=== PATIENT | female | born 1960 | race Caucasian/White ===

== ENCOUNTER 2018-02-26 12:22 | Emergency (ER) | payer BC ==
[~2018-02-26] VITALS: Ht 167.6 cm; Wt 127.0 kg
[~2018-02-26 12:22] MED LIST: ASPIR 8181 MG PO; BUTALB-ACETAMI1 EACH PO; CRANBERRY PO; FIBER PO; FLAXSEED PO; HYDROCHLOROTH12.5 MG PO; LISINOPRIL-HCT1 EAC2 PO; LISINOPRIL10 MG PO; MULTI-VITAMIN1 EACH PO; NOVOLIN N100 UNIT/1 SC; OMEPRAZOLE20 MG PO; POTASSIUM PO; VITAMIN B-12 PO
[2018-02-26] MEDS ORDERED: SODIUM CHLORIDE 0.9% 1000ML 1,000 ML IV STA (12:40)
[2018-02-26] MEDS ORDERED: MORPHINE SULFATE INJ 4 MG/ML INJ IV STA (12:40)
[2018-02-26] MEDS ORDERED: ONDANSETRON HCL INJ 2 MG/ML VIAL IV STA (12:40)
[2018-02-26] MEDS ORDERED: POTASSIUM CHLO10 ME1 PO (12:45)
[2018-02-26] MEDS ORDERED: ATORVASTATIN CA20 MG PO (12:47)
[2018-02-26] MEDS ORDERED: DIATRIZOATE MEGL/DIATRIZOA SOD 30 ML BTL PO ONE (12:50)
[2018-02-26] MEDS ORDERED: LYRICA75 MG PO (13:27)
[2018-02-26] MEDS ORDERED: TRULICITY (13:27)
[2018-02-26] MEDS ORDERED: XYZAL5 MG (13:27)
[2018-02-26] MEDS ORDERED: NABUMETONE500 MG (13:27)
[2018-02-26 13:41] LABS: BASOPHILS # (AUTO) 0.1 (0.0-0.1); BASOPHILS % 0.6 % (0.0-1.0); EOSINOPHILS # (AUTO) 0.2 (0.0-0.4); EOSINOPHILS % 1.7 % (0.0-6.0); HEMATOCRIT 43.2 % (34.2-44.1); HEMOGLOBIN 14.4 g/dL (12.0-16.0); LYMPHOCYTES # (AUTO) 2.9 (1.0-3.2); LYMPHOCYTES % 26.7 % (18.0-39.1); MEAN CORPUSCULAR HEMOGLOBIN 28.9 pg (28-32); MEAN CORPUSCULAR HGB CONC 33.3 g/dL (31-35); MEAN CORPUSCULAR VOLUME 86.6 fL (81-99); MONOCYTES # (AUTO) 0.6 (0.2-0.8); MONOCYTES % 5.3 % (4.4-11.3); NEUTROPHILS # (AUTO) 7.1 (2.1-6.9); NEUTROPHILS % 65.4 % (38.7-80.0); PLATELET COUNT 242 x10e3/uL (140-360); RED BLOOD COUNT 4.99 x10e6/uL (3.6-5.1); RED CELL DISTRIBUTION WIDTH 13.8 % (11.7-14.4)
[2018-02-26 14:01] LABS: CLARITY,URINE CLOUDY (CLEAR); COLOR,URINE YELLOW (YELLOW); KETONES,URINE NEGATIVE (NEGATIVE); LEUKOCYTE ESTERASE ,URINE NEGATIVE (NEGATIVE); NITRITE,URINE NEGATIVE (NEGATIVE); PROTEIN,URINE DIPSTICK NEGATIVE (NEGATIVE); URINE UROBILINOGEN 0.2 mg/dL (0.2 - 1)
[2018-02-26 14:02] LABS: BILIRUBIN,URINE NEGATIVE (NEGATIVE)
[2018-02-26 14:04] LABS: ALANINE AMINOTRANSFERASE 18 IU/L (0-55); ALBUMIN 3.4 g/dL (3.5-5.0); ALBUMIN/GLOBULIN RATIO 0.8 (0.8-2.0); ALKALINE PHOSPHATASE 117 IU/L (40-150); AMYLASE 49 U/L (25-125); ANION GAP 14.6 mmol/L (8-16); BLOOD UREA NITROGEN 21 mg/dL (7-26); BUN/CREATININE RATIO 20 (6-25); CALCIUM 9.5 mg/dL (8.4-10.2); CARBON DIOXIDE 27 mmol/L (22-29); CHLORIDE 106 mmol/L (98-107); CREATININE, SERUM 1.04 mg/dL (0.57-1.11); EST GLOMERULAR FILTRATION RATE 55 ML/MIN (60-); GLUCOSE 93 mg/dL (74-118); LIPASE 35 U/L (8-78); MAGNESIUM 1.6 MG/DL (1.3-2.1); POTASSIUM 3.6 mmol/L (3.5-5.1); SODIUM 144 mmol/L (136-145)
[2018-02-26 14:11] LABS: BACTERIA,URINE MANY /HPF; EPITHELIAL CELLS,URINE MODERATE /LPF; RBC,URINE 0-5 /HPF (0-5)
[2018-02-26] MEDS ORDERED: IOPAMIDOL 370 MG/ML 200 ML INFUS..BTL INJ ONE (14:32)
[2018-02-26] MEDS ORDERED: SODIUM CHLORIDE 0.9% 50ML 50 ML ONE (14:33)
--- NOTE | 2018-02-26 15:20 | Diagnostic Imaging Report ---
EXAM: CT Abdomen and Pelvis WITH contrast INDICATION: \S\LLQ pain, concern for diverticulitis/colitis \[id number] \S\[id number] COMPARISON: None. TECHNIQUE: Abdomen and pelvis were scanned utilizing a multidetector helical scanner from the lung base to the pubic symphysis after administration of IV contrast. Coronal and sagittal reformations were obtained. Routine protocol was performed. Scan was performed when during portal venous phase. IV CONTRAST: 100 mL of Isovue-370 ORAL CONTRAST: Gastroview COMPLICATIONS: None RADIATION DOSE: Total DLP: 906.89 mGy*cm Estimated effective dose: (DLP x 0.015 x size factor) mSv CTDIvol has been reviewed. It is below the limits set by the Radiation Protocol Committee (RPC). FINDINGS: LINES and TUBES: None. LOWER THORAX: Unremarkable. Mild dependent atelectasis. HEPATOBILIARY: No hepatic mass. Subtle subcentimeter right hepatic lobe hypodensity (series 2, image 20) is too small to characterize. No biliary ductal dilation. GALLBLADDER: Surgically absent. SPLEEN: Mild splenomegaly, measuring 12.8 cm. PANCREAS: No focal masses or ductal dilatation. ADRENALS: No adrenal nodules KIDNEYS/URETERS: Markedly atrophic left kidney. Right kidney is unremarkable. No right hydronephrosis or calculus. GI TRACT: No abnormal distention, wall thickening, or evidence of bowel obstruction. Appendix is not clearly identified. There is however no fat stranding or adenopathy in the right lower quadrant to suggest appendicitis. PELVIC ORGANS/BLADDER: Unremarkable. LYMPH NODES: No lymphadenopathy. VESSELS: Unremarkable. PERITONEUM / RETROPERITONEUM: No free air or fluid. BONES: Unremarkable. L5-S1 degenerative changes. SOFT TISSUES: Unremarkable. IMPRESSION: 1. No acute inflammatory process in the abdomen/pelvis. 2. Markedly atrophic nonfunctional left kidney. Signed by: Dr. Nicola Kelley MD on 02/26/2018 3:17 PM
[2018-02-26] MEDS ORDERED: BACTRIM DS TAB1 EACH PO (15:26)
== END 2018-02-26 17:44 | disposition home or self-care (01) ==
LOC: ER 12:22
DX: R10.32 Left lower quadrant pain (principal); R11.0 Nausea
CPT/HCPCS: 36415; 74177; 80053; 81001; 82150; 83690; 83735; 84702; 85025; 87086; 99284; J2270; J2405; J7030; Q9967

== ENCOUNTER 2022-01-06 09:39 | Inpatient (IN) | payer BC, OTHER ==
[~2022-01-06] VITALS: Ht 167.6 cm; Wt 109.3 kg
[~2022-01-06 09:39] MED LIST changes: +ATORVASTATIN CA20 MG PO; +BACTRIM DS TAB1 EACH PO; +LYRICA75 MG PO; +NABUMETONE500 MG; +POTASSIUM CHLO10 ME1 PO; +TRULICITY; +XYZAL5 MG
[2022-01-06] MEDS ORDERED: ONDANSETRON HCL INJ 2MG/ML 2ML 2 MG/ML VIAL IV STA (10:03)
[2022-01-06 10:08] LABS: BASOPHILS # (AUTO) 0.1 (0.0-0.1); BASOPHILS % 0.6 % (0.0-1.0); EOSINOPHILS # (AUTO) 0.3 (0.0-0.4); EOSINOPHILS % 3.2 % (0.0-6.0); HEMATOCRIT 42.2 % (34.2-44.1); HEMOGLOBIN 14.4 g/dL (12.0-16.0); LYMPHOCYTES # (AUTO) 3.4 (1.0-3.2); LYMPHOCYTES % 33.7 % (18.0-39.1); MEAN CORPUSCULAR HEMOGLOBIN 30.8 pg (28-32); MEAN CORPUSCULAR HGB CONC 34.1 g/dL (31-35); MEAN CORPUSCULAR VOLUME 90.4 fL (81-99); MONOCYTES # (AUTO) 0.6 (0.2-0.8); MONOCYTES % 5.9 % (4.4-11.3); NEUTROPHILS # (AUTO) 5.7 (2.1-6.9); NEUTROPHILS % 56.4 % (38.7-80.0); PLATELET COUNT 204 x10e3/uL (140-360); RED BLOOD COUNT 4.67 x10e6/uL (3.6-5.1); RED CELL DISTRIBUTION WIDTH 13.5 % (11.7-14.4)
[2022-01-06 10:34] LABS: INR 0.9
[2022-01-06 10:35] LABS: PARTIAL THROMBOPLASTIN TIME 24.9 seconds (23.8-35.5)
[2022-01-06 10:42] LABS: ALANINE AMINOTRANSFERASE 20 IU/L (0-55); ALBUMIN 3.5 g/dL (3.5-5.0); ALBUMIN/GLOBULIN RATIO 0.9 (0.8-2.0); ALKALINE PHOSPHATASE 91 IU/L (40-150); ANION GAP 17.6 mmol/L (8-16); BLOOD UREA NITROGEN 23 mg/dL (7-26); BUN/CREATININE RATIO 14 (6-25); CALCIUM 8.3 mg/dL (8.4-10.2); CARBON DIOXIDE 26 mmol/L (22-29); CHLORIDE 102 mmol/L (98-107); CREATINE KINASE 64 IU/L (29-168); CREATININE, SERUM 1.66 mg/dL (0.57-1.11); GLUCOSE 142 mg/dL (74-118); SODIUM 143 mmol/L (136-145)
[2022-01-06 10:43] LABS: POTASSIUM 2.6 mmol/L (3.5-5.1)
[2022-01-06] MEDS ORDERED: POTASSIUM CHL 40 MEQ in SODIUM CHLORIDE 0.9% 250ML 230 ML IV STA (10:57)
[2022-01-06 10:59] LABS: CLARITY,URINE CLEAR (CLEAR); COLOR,URINE YELLOW (YELLOW); KETONES,URINE NEGATIVE (NEGATIVE); LEUKOCYTE ESTERASE ,URINE NEGATIVE (NEGATIVE); NITRITE,URINE NEGATIVE (NEGATIVE); PROTEIN,URINE DIPSTICK NEGATIVE (NEGATIVE); URINE UROBILINOGEN 0.2 mg/dL (0.2 - 1)
[2022-01-06] MEDS ORDERED: POTASSIUM CHLORIDE 20MEQ/15ML UDC NG ONE (11:00)
[2022-01-06] MEDS: POTASSIUM CHLORIDE 10MEQ/100ML 100 ML INJ SCH ×6 (11:23→17:00)
[2022-01-06 11:25] LABS: BACTERIA,URINE MANY /HPF; EPITHELIAL CELLS,URINE FEW /LPF; RBC,URINE 0-5 /HPF (0-5); WBC,URINE (MAN) 0-5 /HPF (0-5)
[2022-01-06] MEDS ORDERED: KCL 20 MEQ PACKET/ ORAL SOLN PO ONE (11:30)
[2022-01-06 12:47] LABS: MAGNESIUM 1.3 MG/DL (1.3-2.1)
[2022-01-06 13:20] VITALS: BP 107/58
[2022-01-06] MEDS ORDERED: SODIUM CHLORIDE 0.9% 1000ML 1,000 ML ONE (13:49)
[2022-01-06 14:58] VITALS: BP 107/58
[2022-01-06 15:03] VITALS: BP 107/58
[2022-01-06 16:15] VITALS: BP 109/68
[2022-01-06] MEDS ORDERED: POTASSIUM CHLORIDE 10MEQ/100ML 100 ML INJ ONE (17:30)
[2022-01-06] MEDS ORDERED: ONDANSETRON HCL INJ 2MG/ML 2ML 2 MG/ML VIAL IV PRN (17:30)
[2022-01-06 20:00] VITALS: BP 118/61
[2022-01-06] MEDS ORDERED: LYRICA150 MG PO (20:33)
[2022-01-06] MEDS ORDERED: MELOXICAM7.5 MG PO (20:33)
[2022-01-06 21:00] VITALS: BP 118/61
[2022-01-06] MEDS: PANTOPRAZOLE SOD 40 MG TABEC PO SCH (21:51)
[2022-01-06] MEDS: ATORVASTATIN 20 MG TAB PO SCH (21:51)
[2022-01-06] MEDS: MELOXICAM 7.5 MG TAB PO SCH (22:26)
[2022-01-06] MEDS: PREGABALIN 75 MG CAP PO SCH (22:27)
[2022-01-07] VITALS (8 sets, daily range): BP systolic 96–137; BP diastolic 51–74
[2022-01-07] MEDS: MULTIVITAMINS/MINERALS TAB PO SCH (09:33)
[2022-01-07] MEDS: ASPIRIN 81 MG CHEW TAB PO SCH (09:34)
[2022-01-07] MEDS: PANTOPRAZOLE SOD 40 MG TABEC PO SCH (09:34)
[2022-01-07] MEDS: PREGABALIN 75 MG CAP PO SCH (09:36)
[2022-01-07 10:14] LABS: HEMATOCRIT 38.1 % (34.2-44.1); HEMOGLOBIN 12.7 g/dL (12.0-16.0); MEAN CORPUSCULAR HEMOGLOBIN 30.8 pg (28-32); MEAN CORPUSCULAR HGB CONC 33.3 g/dL (31-35); MEAN CORPUSCULAR VOLUME 92.3 fL (81-99); PLATELET COUNT 178 x10e3/uL (140-360); RED BLOOD COUNT 4.13 x10e6/uL (3.6-5.1); RED CELL DISTRIBUTION WIDTH 13.4 % (11.7-14.4)
[2022-01-07 10:32] LABS: ALBUMIN 2.9 g/dL (3.5-5.0); ANION GAP 13.1 mmol/L (8-16); CALCIUM 7.8 mg/dL (8.4-10.2); CREATININE, SERUM 1.25 mg/dL (0.57-1.11); POTASSIUM 3.1 mmol/L (3.5-5.1)
[2022-01-07] MEDS ORDERED: POTASSIUM CHLORIDE 20 MEQ TAB CR PO ONE (12:30)
[2022-01-07] MEDS ORDERED: MAGNESIUM SULF 1GRAM/DEXTROSE 100 ML IV ONE (16:30)
[2022-01-07] MEDS ORDERED: PREGABALIN 25 MG CAP PO SCH (17:00)
[2022-01-07] MEDS: MELOXICAM 7.5 MG TAB PO SCH (21:10)
[2022-01-07] MEDS: ATORVASTATIN 20 MG TAB PO SCH (21:10)
[2022-01-08] VITALS (8 sets, daily range): BP systolic 109–117; BP diastolic 58–72
[2022-01-08 05:54] LABS: BASOPHILS % 0.5 % (0.0-1.0); EOSINOPHILS # (AUTO) 0.3 (0.0-0.4); EOSINOPHILS % 3.3 % (0.0-6.0); HEMATOCRIT 37.4 % (34.2-44.1); HEMOGLOBIN 12.3 g/dL (12.0-16.0); LYMPHOCYTES # (AUTO) 2.9 (1.0-3.2); MEAN CORPUSCULAR HEMOGLOBIN 30.5 pg (28-32); MEAN CORPUSCULAR HGB CONC 32.9 g/dL (31-35); MEAN CORPUSCULAR VOLUME 92.8 fL (81-99); MONOCYTES # (AUTO) 0.5 (0.2-0.8); MONOCYTES % 6.2 % (4.4-11.3); NEUTROPHILS # (AUTO) 4.7 (2.1-6.9); NEUTROPHILS % 55.9 % (38.7-80.0); PLATELET COUNT 166 x10e3/uL (140-360); RED BLOOD COUNT 4.03 x10e6/uL (3.6-5.1); RED CELL DISTRIBUTION WIDTH 13.4 % (11.7-14.4)
[2022-01-08 06:22] LABS: CALCIUM 8.1 mg/dL (8.4-10.2); CREATININE, SERUM 1.04 mg/dL (0.57-1.11)
[2022-01-08] MEDS: MULTIVITAMINS/MINERALS TAB PO SCH (09:02)
[2022-01-08] MEDS: ASPIRIN 81 MG CHEW TAB PO SCH (09:02)
[2022-01-08] MEDS ORDERED: POTASSIUM CHLORIDE 20MEQ/100ML 100 ML IV ONE (12:30)
[2022-01-08] MEDS: POTASSIUM CHLORIDE 20 MEQ TAB CR PO SCH (16:38)
[2022-01-08] MEDS: MAGNESIUM OXIDE 400 MG TAB PO SCH (16:38)
[2022-01-08] MEDS: OYST-CAL-D 500MG TABLET PO SCH (16:38)
[2022-01-08] MEDS: HYDROCODONE/APAP 7.5MG-325MG 1 EA TAB PO PRN (16:39)
[2022-01-08] MEDS: ATORVASTATIN 20 MG TAB PO SCH (20:38)
[2022-01-08] MEDS: MELOXICAM 7.5 MG TAB PO SCH (20:39)
[2022-01-09] VITALS (8 sets, daily range): BP systolic 101–120; BP diastolic 53–71
[2022-01-09] MEDS: MULTIVITAMINS/MINERALS TAB PO SCH (08:34)
[2022-01-09] MEDS: OYST-CAL-D 500MG TABLET PO SCH ×2 (08:35→16:51)
[2022-01-09] MEDS: MAGNESIUM OXIDE 400 MG TAB PO SCH ×2 (08:35→16:51)
[2022-01-09] MEDS: ASPIRIN 81 MG CHEW TAB PO SCH (08:35)
[2022-01-09] MEDS: POTASSIUM CHLORIDE 20 MEQ TAB CR PO SCH ×3 (08:36→16:51)
[2022-01-09 09:18] LABS: BASOPHILS % 0.5 % (0.0-1.0); EOSINOPHILS # (AUTO) 0.2 (0.0-0.4); EOSINOPHILS % 2.7 % (0.0-6.0); HEMATOCRIT 37.3 % (34.2-44.1); HEMOGLOBIN 12.1 g/dL (12.0-16.0); LYMPHOCYTES # (AUTO) 2.2 (1.0-3.2); LYMPHOCYTES % 29.6 % (18.0-39.1); MEAN CORPUSCULAR HEMOGLOBIN 30.3 pg (28-32); MEAN CORPUSCULAR HGB CONC 32.4 g/dL (31-35); MEAN CORPUSCULAR VOLUME 93.5 fL (81-99); MONOCYTES # (AUTO) 0.4 (0.2-0.8); MONOCYTES % 5.3 % (4.4-11.3); NEUTROPHILS # (AUTO) 4.6 (2.1-6.9); NEUTROPHILS % 61.4 % (38.7-80.0); PLATELET COUNT 169 x10e3/uL (140-360); RED BLOOD COUNT 3.99 x10e6/uL (3.6-5.1); RED CELL DISTRIBUTION WIDTH 13.6 % (11.7-14.4)
[2022-01-09 09:49] LABS: ANION GAP 11.6 mmol/L (8-16); CALCIUM 8.1 mg/dL (8.4-10.2); CREATININE, SERUM 0.99 mg/dL (0.57-1.11); MAGNESIUM 1.7 MG/DL (1.3-2.1); POTASSIUM 3.6 mmol/L (3.5-5.1)
[2022-01-09] MEDS ORDERED: MAGNESIUM SULF 1GRAM/DEXTROSE 100 ML IV ONE (10:00)
[2022-01-09] MEDS: HYDROCODONE/APAP 7.5MG-325MG 1 EA TAB PO PRN ×2 (10:20→22:41)
[2022-01-09 10:22] LABS: THYROID STIMULATING HORMONE 1.361 uIU/mL (0.350-4.940)
[2022-01-09] MEDS ORDERED: DIAZEPAM 5 MG TAB PO PRN (14:00)
[2022-01-09] MEDS ORDERED: POTASSIUM CHLORIDE 20 MEQ TAB CR PO NR (14:00)
[2022-01-09] MEDS ORDERED: ACETAMINOPHEN 325 MG TAB PO PRN (14:00)
[2022-01-09] MEDS ORDERED: POTASSIUM PHOSPHATE 15 MM in SODIUM CHLORIDE 0.9% 250ML 250 ML IV ONE (14:30)
[2022-01-09] MEDS: MELOXICAM 7.5 MG TAB PO SCH (21:00)
[2022-01-09] MEDS: ATORVASTATIN 20 MG TAB PO SCH (21:00)
[2022-01-10] VITALS (7 sets, daily range): BP systolic 101–114; BP diastolic 59–85
[2022-01-10 06:24] LABS: BASOPHILS % 0.5 % (0.0-1.0); EOSINOPHILS # (AUTO) 0.3 (0.0-0.4); EOSINOPHILS % 3.8 % (0.0-6.0); HEMATOCRIT 37.4 % (34.2-44.1); LYMPHOCYTES # (AUTO) 2.8 (1.0-3.2); LYMPHOCYTES % 37.8 % (18.0-39.1); MEAN CORPUSCULAR HEMOGLOBIN 30.2 pg (28-32); MEAN CORPUSCULAR HGB CONC 32.1 g/dL (31-35); MEAN CORPUSCULAR VOLUME 94.2 fL (81-99); MONOCYTES # (AUTO) 0.5 (0.2-0.8); MONOCYTES % 6.3 % (4.4-11.3); NEUTROPHILS # (AUTO) 3.8 (2.1-6.9); NEUTROPHILS % 51.3 % (38.7-80.0); PLATELET COUNT 161 x10e3/uL (140-360); RED BLOOD COUNT 3.97 x10e6/uL (3.6-5.1); RED CELL DISTRIBUTION WIDTH 13.8 % (11.7-14.4)
[2022-01-10 06:58] LABS: ANION GAP 11.3 mmol/L (8-16); CALCIUM 8.2 mg/dL (8.4-10.2); CREATININE, SERUM 1.05 mg/dL (0.57-1.11); MAGNESIUM 2.2 MG/DL (1.3-2.1); PHOSPHORUS 3.3 MG/DL (2.3-4.7); POTASSIUM 4.3 mmol/L (3.5-5.1)
[2022-01-10] MEDS ORDERED: DEXTROSE 5%/0.225% SOD CHL 1,000 ML IV ONE (08:00)
[2022-01-10] MEDS: ASPIRIN 81 MG CHEW TAB PO SCH (09:28)
[2022-01-10] MEDS: POTASSIUM CHLORIDE 20 MEQ TAB CR PO SCH ×3 (09:28→13:48)
[2022-01-10] MEDS: OYST-CAL-D 500MG TABLET PO SCH ×2 (09:29→17:55)
[2022-01-10] MEDS: MAGNESIUM OXIDE 400 MG TAB PO SCH (09:29)
[2022-01-10] MEDS: MULTIVITAMINS/MINERALS TAB PO SCH (09:29)
[2022-01-10] MEDS: POLYETHYLENE GLYCOL 3350 17 GM PACK PO SCH (17:00)
[2022-01-10] MEDS: DOCUSATE SODIUM 100 MG CAP PO SCH ×2 (17:55→20:45)
[2022-01-10] MEDS: HYDROCODONE/APAP 7.5MG-325MG 1 EA TAB PO PRN (19:16)
[2022-01-10] MEDS: MELOXICAM 7.5 MG TAB PO SCH (20:44)
[2022-01-10] MEDS: ATORVASTATIN 20 MG TAB PO SCH (20:45)
[2022-01-11] VITALS (8 sets, daily range): BP systolic 109–133; BP diastolic 49–68
[2022-01-11 06:31] LABS: BASOPHILS % 0.4 % (0.0-1.0); EOSINOPHILS # (AUTO) 0.2 (0.0-0.4); HEMATOCRIT 35.3 % (34.2-44.1); HEMOGLOBIN 11.4 g/dL (12.0-16.0); LYMPHOCYTES # (AUTO) 2.6 (1.0-3.2); LYMPHOCYTES % 33.5 % (18.0-39.1); MEAN CORPUSCULAR HEMOGLOBIN 30.6 pg (28-32); MEAN CORPUSCULAR HGB CONC 32.3 g/dL (31-35); MEAN CORPUSCULAR VOLUME 94.9 fL (81-99); MONOCYTES # (AUTO) 0.5 (0.2-0.8); MONOCYTES % 6.2 % (4.4-11.3); NEUTROPHILS # (AUTO) 4.4 (2.1-6.9); NEUTROPHILS % 56.6 % (38.7-80.0); PLATELET COUNT 153 x10e3/uL (140-360); RED BLOOD COUNT 3.72 x10e6/uL (3.6-5.1)
[2022-01-11 06:55] LABS: ALBUMIN 2.5 g/dL (3.5-5.0); ALBUMIN/GLOBULIN RATIO 0.9 (0.8-2.0); ANION GAP 11.8 mmol/L (8-16); CALCIUM 7.9 mg/dL (8.4-10.2); CREATININE, SERUM 1.11 mg/dL (0.57-1.11); MAGNESIUM 1.8 MG/DL (1.3-2.1); PHOSPHORUS 3.1 MG/DL (2.3-4.7); POTASSIUM 3.8 mmol/L (3.5-5.1)
[2022-01-11] MEDS: DEXTROSE 5%/0.225% SOD CHL 1,000 ML IV SCH (08:00)
[2022-01-11] MEDS: DOCUSATE SODIUM 100 MG CAP PO SCH ×3 (08:05→20:30)
[2022-01-11] MEDS: ASPIRIN 81 MG CHEW TAB PO SCH (08:05)
[2022-01-11] MEDS: MULTIVITAMINS/MINERALS TAB PO SCH (08:06)
[2022-01-11] MEDS: OYST-CAL-D 500MG TABLET PO SCH ×3 (08:06→20:30)
[2022-01-11] MEDS: POTASSIUM CHLORIDE 20 MEQ TAB CR PO SCH ×3 (08:06→22:00)
[2022-01-11] MEDS: POLYETHYLENE GLYCOL 3350 17 GM PACK PO SCH ×2 (08:07→16:59)
[2022-01-11] MEDS: MAGNESIUM OXIDE 400 MG TAB PO SCH (08:45)
[2022-01-11] MEDS: ATORVASTATIN 20 MG TAB PO SCH (20:30)
[2022-01-11] MEDS: MELOXICAM 7.5 MG TAB PO SCH (20:30)
[2022-01-12] MEDS: DEXTROSE 5%/0.225% SOD CHL 1,000 ML IV SCH ×2 (00:02→10:40)
[2022-01-12 00:25] VITALS: BP 130/60
[2022-01-12 06:06] VITALS: BP 119/62
[2022-01-12 06:44] LABS: BASOPHILS % 0.4 % (0.0-1.0); EOSINOPHILS # (AUTO) 0.2 (0.0-0.4); EOSINOPHILS % 1.8 % (0.0-6.0); HEMATOCRIT 35.2 % (34.2-44.1); HEMOGLOBIN 11.5 g/dL (12.0-16.0); LYMPHOCYTES # (AUTO) 2.4 (1.0-3.2); LYMPHOCYTES % 29.2 % (18.0-39.1); MEAN CORPUSCULAR HEMOGLOBIN 30.6 pg (28-32); MEAN CORPUSCULAR HGB CONC 32.7 g/dL (31-35); MEAN CORPUSCULAR VOLUME 93.6 fL (81-99); MONOCYTES # (AUTO) 0.4 (0.2-0.8); MONOCYTES % 5.4 % (4.4-11.3); NEUTROPHILS # (AUTO) 5.1 (2.1-6.9); NEUTROPHILS % 62.8 % (38.7-80.0); PLATELET COUNT 144 x10e3/uL (140-360); RED BLOOD COUNT 3.76 x10e6/uL (3.6-5.1); RED CELL DISTRIBUTION WIDTH 13.6 % (11.7-14.4)
[2022-01-12 06:58] LABS: ALBUMIN 2.5 g/dL (3.5-5.0); ALBUMIN/GLOBULIN RATIO 0.9 (0.8-2.0); ANION GAP 11.1 mmol/L (8-16); CALCIUM 8.5 mg/dL (8.4-10.2); CREATININE, SERUM 1.01 mg/dL (0.57-1.11); MAGNESIUM 1.6 MG/DL (1.3-2.1); PHOSPHORUS 3.3 MG/DL (2.3-4.7); POTASSIUM 4.1 mmol/L (3.5-5.1)
[2022-01-12 07:17] VITALS: BP 128/73
[2022-01-12 07:54] VITALS: BP 128/73
[2022-01-12] MEDS: ASPIRIN 81 MG CHEW TAB PO SCH (08:26)
[2022-01-12] MEDS: DOCUSATE SODIUM 100 MG CAP PO SCH (08:26)
[2022-01-12] MEDS: POTASSIUM CHLORIDE 20 MEQ TAB CR PO SCH (08:27)
[2022-01-12] MEDS: MULTIVITAMINS/MINERALS TAB PO SCH (08:27)
[2022-01-12] MEDS: OYST-CAL-D 500MG TABLET PO SCH (08:27)
[2022-01-12] MEDS: MAGNESIUM OXIDE 400 MG TAB PO SCH (08:27)
[2022-01-12] MEDS: POLYETHYLENE GLYCOL 3350 17 GM PACK PO SCH (08:27)
[2022-01-12] MEDS ORDERED: MAGNESIUM SULFATE 2GM/50ML 50 ML IV ONE (09:00)
[2022-01-12] MEDS ORDERED: MAGNESIUM OXID420 MG PO (09:11)
[2022-01-12] MEDS ORDERED: HYDROCODON-ACE1 EA12 PO (09:11)
[2022-01-12] MEDS ORDERED: Docusate Sodium PO (09:11)
[2022-01-12] MEDS ORDERED: Calcium Carbonate PO (09:11)
[2022-01-12] MEDS ORDERED: KLOR-CON M2020 MEQ PO (09:11)
[2022-01-12] MEDS ORDERED: HYDROCODON-ACE1 EA15 PO (09:39)
[2022-01-12 11:26] VITALS: BP 144/72
[2022-01-12] MEDS ORDERED: ONDANSETRON HCL 4 MG ORAL DISINTEGRATING TAB PO PRN (12:15)
[2022-01-12] MEDS ORDERED: PANTOPRAZOLE SOD 40 MG TABEC PO SCH (16:30)
[2022-01-12] MEDS ORDERED: MAGNESIUM OXIDE 400 MG TAB PO SCH (17:00)
== END 2022-01-12 13:20 | disposition home or self-care (01) | DRG 641 ==
LOC: ER 09:44 → ERHOLD 11:57 → MED/SURG2 13:18 → OBSVTOIN 01-07 15:57
PROVIDERS: ADMIT Internal Medicine; ATTEND Internal Medicine
PROC: 02HV33Z Insertion of Infusion Device into Superior Vena Cava, Percutaneous Approach (ICD-10-PCS; principal; 2022-01-10)
DX: E87.0 Hyperosmolality and hypernatremia (principal); I13.0 Hypertensive heart and chronic kidney disease with heart failure and stage 1 through stage 4 chronic kidney disease, or unspecified chronic kidney disease; I50.32 Chronic diastolic (congestive) heart failure; R47.01 Aphasia; K21.9 Gastro-esophageal reflux disease without esophagitis; N18.31 Chronic kidney disease, stage 3a; R25.1 Tremor, unspecified; R25.2 Cramp and spasm; M62.830 Muscle spasm of back; E87.8 Other disorders of electrolyte and fluid balance, not elsewhere classified; G47.33 Obstructive sleep apnea (adult) (pediatric); R00.1 Bradycardia, unspecified; M16.0 Bilateral primary osteoarthritis of hip; E11.22 Type 2 diabetes mellitus with diabetic chronic kidney disease; E83.39 Other disorders of phosphorus metabolism; E78.00 Pure hypercholesterolemia, unspecified; F40.240 Claustrophobia; Z87.891 Personal history of nicotine dependence; E87.6 Hypokalemia; Z20.822 Contact with and (suspected) exposure to COVID-19
CPT/HCPCS: 0223U; 36415; 36569; 51700; 70450; 70551; 71045; 80048; 80053; 81001; 82533; 82550; 82553; 82948; 83690; 83735; 84100; 84443; 84484; 85007; 85025; 85027; 85610; 85730; 92521; 93005; 94799; 97139; 99284; G0378; J0696; J2405; J3475; J3480; J7030; J7050

== ENCOUNTER 2022-09-20 11:10 | Emergency (ER) | payer OTHER ==
[~2022-09-20] VITALS: Ht 167.6 cm; Wt 109.3 kg
[~2022-09-20 11:10] MED LIST changes: +Calcium Carbonate PO; +Docusate Sodium PO; +HYDROCODON-ACE1 EA12 PO; +HYDROCODON-ACE1 EA15 PO; +KLOR-CON M2020 MEQ PO; +LYRICA150 MG PO; +MAGNESIUM OXID420 MG PO; +MELOXICAM7.5 MG PO
[2022-09-20] MEDS ORDERED: ALBUTEROL/IPRATROPIUM 3 ML NEB NEB ONE (11:30)
[2022-09-20] MEDS ORDERED: PREDNISONE 20 MG TAB PO ONE (11:30)
[2022-09-20] MEDS ORDERED: ALBUTEROL1.25 MG/3 NEB (12:54)
[2022-09-20] MEDS ORDERED: BENZONATATE200 MG PO (12:54)
[2022-09-20] MEDS ORDERED: PREDNISONE50 MG PO (12:54)
[2022-09-20] MEDS ORDERED: AZITHROMYCIN250 MG PO (12:54)
[2022-09-21] MEDS ORDERED: NAPROXEN250 MG PO (18:07)
== END 2022-09-20 12:59 | disposition home or self-care (01) ==
LOC: ER 11:16
DX: R06.02 Shortness of breath (principal); J40 Bronchitis, not specified as acute or chronic; R05.9 Cough, unspecified; E11.65 Type 2 diabetes mellitus with hyperglycemia; I10 Essential (primary) hypertension; I50.9 Heart failure, unspecified; K21.9 Gastro-esophageal reflux disease without esophagitis; G47.30 Sleep apnea, unspecified
CPT/HCPCS: 36415; 71045; 82948; 94640; 94799; 99283; J7512

== ENCOUNTER 2022-09-21 15:57 | Emergency (ER) | payer OTHER ==
[~2022-09-21] VITALS: Ht 167.6 cm; Wt 109.3 kg
[~2022-09-21 15:57] MED LIST changes: +ALBUTEROL1.25 MG/3 NEB; +AZITHROMYCIN250 MG PO; +BENZONATATE200 MG PO; +PREDNISONE50 MG PO
[2022-09-21] MEDS ORDERED: HYDROCODONE/APAP 5MG-325MG TAB PO ONE (17:00)
[2022-09-21] MEDS ORDERED: NAPROXEN250 MG PO (18:07)
== END 2022-09-21 18:20 | disposition home or self-care (01) ==
LOC: ER 16:02
DX: S63.591A Other specified sprain of right wrist, initial encounter (principal); W22.09XA Striking against other stationary object, initial encounter; Y92.89 Other specified places as the place of occurrence of the external cause; I12.9 Hypertensive chronic kidney disease with stage 1 through stage 4 chronic kidney disease, or unspecified chronic kidney disease; E11.22 Type 2 diabetes mellitus with diabetic chronic kidney disease; N18.9 Chronic kidney disease, unspecified; I50.9 Heart failure, unspecified; K21.9 Gastro-esophageal reflux disease without esophagitis; G47.30 Sleep apnea, unspecified; F41.9 Anxiety disorder, unspecified
CPT/HCPCS: 99284

== ENCOUNTER → 2022-10-29 | Day surgery (SDC) | payer OTHER ==
[2022-10-21 11:57] LABS: BASOPHILS % 0.5 % (0.0-1.0); EOSINOPHILS # (AUTO) 0.1 (0.0-0.4); EOSINOPHILS % 1.5 % (0.0-6.0); HEMATOCRIT 41.2 % (34.2-44.1); HEMOGLOBIN 13.7 g/dL (12.0-16.0); LYMPHOCYTES # (AUTO) 2.4 (1.0-3.2); LYMPHOCYTES % 29.6 % (18.0-39.1); MEAN CORPUSCULAR HEMOGLOBIN 30.3 pg (28-32); MEAN CORPUSCULAR HGB CONC 33.3 g/dL (31-35); MEAN CORPUSCULAR VOLUME 91.2 fL (81-99); MONOCYTES # (AUTO) 0.5 (0.2-0.8); MONOCYTES % 5.7 % (4.4-11.3); NEUTROPHILS # (AUTO) 5.1 (2.1-6.9); NEUTROPHILS % 62.5 % (38.7-80.0); PLATELET COUNT 186 x10e3/uL (140-360); RED BLOOD COUNT 4.52 x10e6/uL (3.6-5.1); RED CELL DISTRIBUTION WIDTH 14.5 % (11.7-14.4)
[2022-10-21 12:20] LABS: ANION GAP 12.5 mmol/L (8-16); CALCIUM 9.2 mg/dL (8.4-10.2); CREATININE, SERUM 1.16 mg/dL (0.57-1.11); POTASSIUM 3.5 mmol/L (3.5-5.1)
[~2022-10-29] MED LIST changes: +ABILIFY5 MG PO; +BUPIVACAINE HCL 0.5% INJ 30 ML VIAL INJ ONE; +FENTANYL CITRATE/PF 100MCG/2 ML INJ ONE; +LACTATED RINGER'S 1,000 ML ONE; +LIDOCAINE HCL 1% LOCAL INJ 20 ML VIAL ONE; +METHYLPREDNISOLONE ACETATE 80 MG/ML VIAL ONE; +MIDAZOLAM HCL 2 MG/2 ML VIAL ONE; +MIRTAZAPINE15 MG PO; +NAPROXEN250 MG PO; +TRULICITY1.5 MG/0.5 SQ
[2022-10-29 07:55] VITALS: BP 117/69
== END | disposition home or self-care (01) ==
LOC: OR 06:28
PROVIDERS: ATTEND Orthopaedic Surgery
DX: M94.252 Chondromalacia, left hip (principal); M94.251 Chondromalacia, right hip; M16.0 Bilateral primary osteoarthritis of hip; Z01.810 Encounter for preprocedural cardiovascular examination; Z01.812 Encounter for preprocedural laboratory examination; Z01.818 Encounter for other preprocedural examination; Z79.82 Long term (current) use of aspirin; Z79.899 Other long term (current) drug therapy
CPT/HCPCS: 20610; 36415 ×2; 71046; 77002; 80048; 82948; 85025; 93005; J1040; J2001; J2250; J3010; J7121

== ENCOUNTER 2023-05-09 10:59 | Outpatient (RCR) | payer OTHER ==
[~2023-05-09 10:59] MED LIST changes: -BUPIVACAINE HCL 0.5% INJ 30 ML VIAL INJ ONE; -FENTANYL CITRATE/PF 100MCG/2 ML INJ ONE; -LACTATED RINGER'S 1,000 ML ONE; -LIDOCAINE HCL 1% LOCAL INJ 20 ML VIAL ONE; -METHYLPREDNISOLONE ACETATE 80 MG/ML VIAL ONE; -MIDAZOLAM HCL 2 MG/2 ML VIAL ONE
== END 2023-05-17 ==
LOC: PT 10:59
PROVIDERS: ATTEND Orthopaedic Surgery
DX: S76.012D Strain of muscle, fascia and tendon of left hip, subsequent encounter (principal); M76.01 Gluteal tendinitis, right hip; M76.02 Gluteal tendinitis, left hip; R26.2 Difficulty in walking, not elsewhere classified